=== PATIENT | male | born 1945 | race Caucasian/White ===

== ENCOUNTER 2022-10-14 10:02 | Day surgery (SDC) | payer MEDICARE, OTHER, SELFPAY ==
[2022-10-14 10:30] VITALS: BP 136/80; PULSE 70; RESP 16; TEMP 37; O2SAT 95
[2022-10-14] MEDS: TETRACAINE 0.5% OPHTH 1 DROP EYE-RIGHT (10:30)
[2022-10-14] MEDS: KETOROLAC OPHTH 0.5% 1 DROP EYE-RIGHT ×3 (10:30→11:04)
[2022-10-14] MEDS: TETRACAINE 0.5% OPHTH 2 DROP EYE-RIGHT (11:35)
--- NOTE | 2022-10-14 11:39 | P.ANES_ITS ---
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
[2022-10-14] MEDS: BALANCED SALT IRRIG SOLN 15 ML EYE-RIGHT (11:41)
[2022-10-14] MEDS: BRIMONIDINE TARTRATE 0.2% OPHTH 1 DROP EYE-RIGHT (11:55)
[2022-10-14 12:00] VITALS: BP 128/69; PULSE 69; RESP 16; TEMP 36.7; O2SAT 96
--- NOTE | 2022-10-14 12:19 | W.ANESCHARGE ---
Anesthesia Charges Start Date/Time Anesthesia Start Date: 10/14/22 Anesthesia Start Time: 11:30 Stop Date/Time Anesthesia Stop Date: 10/14/22 Anesthesia Stop Time: 12:05 Summary Extremes of Age - Over 70 or under 1: MDA
--- NOTE | 2022-10-14 12:41 | PM.PROC ---
Procedure Note Date Seen: 10/14/22 Will [facility] bill your pro fee for this procedure?: No Procedure: right phaco with pc iol Procedure Description: Insert right Koffi NAME OF PROCEDURE Koffi phacoemulsification, right eye, with posterior chamber lens implant. PREOPERATIVE DIAGNOSIS Nuclear sclerotic cortical combined cataract, right eye. POSTOPERATIVE DIAGNOSIS Nuclear sclerotic cortical combined cataract, right eye. INDICATIONS FOR PROCEDURE The patient has noted that his vision in the right eye is failing. Severity 7 advanced/10. Unable to correct with glasses/contact lenses; has disabling night glare when driving, difficulty reading. Because of this, the patient elected to proceed with surgical repair. I have explained the risks, benefits, alternative treatments to the patient including possible loss of the eye under correction, over correction, need for more surgery. The patient understands, accepts, and elects to proceed with surgical repair. PROCEDURE The right eye was dilated with a combination 1% Mydriacyl, 2.5% phenylephrine with topical Ocufen and Vigamox applied to the corneal surface. The patient was brought to the main operating room where under IV sedation, after pausing to identify the correct patient, correct intraoperative lens, power . The right eye was prepped and draped in usual sterile fashion for intraocular surgery. A lid speculum was placed and a paracentesis created at 12 o'clock. The chamber was filled with OVD and entered temporally with a keratome. A continuous tear capsulotomy was performed. The nucleus was hydrodissected and emulsified with local anesthetic and emulsified in a chop technique in the capsular bag. Residual cortex was cleaned. The capsule was clear. At this point, ZCBOO 21.0 diopter posterior chamber lens implant was injected into the capsular bag and was well centered. Residual OVD was cleaned from behind the implant from the capsular bag. The incision hydrated and noted to be leak free. Topical Alphagan, pilocarpine, and Vigamox were applied to the corneal surface and the patient returned to recovery in good condition having tolerated the procedure well. CONDITION ON DISCHARGE Satisfactory.
[2022-10-14] MEDS: ACETAMINOPHEN 500 MG TABLET 1000 MG PO (12:45)
== END 2022-10-14 12:56 | disposition home or self-care (01) ==
PROVIDERS: PCP Surgery; Visit Provider Ophthalmology
PROC: (CPT 66984; principal; 2022-10-14 11:30)
DX: H25.811 Combined forms of age-related cataract, right eye (principal)
CPT/HCPCS: 66984; 00142; 99100; A9270; J2250; J3010; S0020; V2632

== ENCOUNTER 2023-03-01 10:05 | Outpatient (CLI) | payer MEDICARE, OTHER, SELFPAY ==
--- NOTE | 2023-03-01 12:09 | W.ANESCHARGE ---
Anesthesia Charges Start Date/Time Anesthesia Start Date: 03/01/23 Anesthesia Start Time: 11:18 Stop Date/Time Anesthesia Stop Date: 03/01/23 Anesthesia Stop Time: 12:06
--- NOTE | 2023-03-01 13:39 | W.ANESCHARGE ---
Anesthesia Charges Start Date/Time Anesthesia Start Date: 03/01/23 Anesthesia Start Time: 11:18 Stop Date/Time Anesthesia Stop Date: 03/01/23 Anesthesia Stop Time: 12:06 Summary Extremes of Age - Over 70 or under 1: MDA
== END 2023-03-01 10:06 | disposition home or self-care (01) ==
LOC: OP CLINIC 10:07
PROVIDERS: PCP Surgery; Visit Provider Internal Medicine Gastroenterology
DX: Z86.010 Personal history of colon polyps (principal); K63.5 Polyp of colon
CPT/HCPCS: 00811; 45385; 88305; 99100; J2704

== ENCOUNTER 2024-03-02 07:20 | Emergency (ER) | payer MEDICARE, OTHER, SELFPAY ==
[2024-03-02] VITALS (26 sets, daily range): BP systolic 91–121; BP diastolic 46–70; PULSE 67–79; RESP 16–18; TEMP 36.7; O2SAT 93–99; BMI 39.6
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
--- OUTSIDE RECORDS SUMMARY | 2024-03-02 08:36 | XMS_ITS | Encounter Summary ---
Author Organization [facility] Address [address] [place] [id number] Care Team Providers Care Attic Fans Mechanic Name Role Phone Unavailable Primary Care Provider Unavailabl e Encounter Details Date Type Department Care Team (Late st Contact Info) Description 12/07/2023 Clinical Communication Department of Radiation Oncology in [place], [place] [address] [place] [phone] Marvin Sinclair M.D. [address] [place] [phone] Social History Tobacco Use Types Packs/Day Years Used Date Smoking Tobacco: Never Assessed Nutrition Answer Date Recorded Nutrition: EVOO Fat Source Unknown 12/26 Nutrition: Servings of Fruits/Vegetables per Day Not on file 12/26/2020 Dental Answer Date Recorded Dental: Regular Dentist Unknown 12/27/19 21 Sex and Gender Information Value Date Recorded Sex Assigned at Male 01/08/2021 2:52 PM CDT Legal Sex Male 1:15 PM CDT Gender Identity Male 01/08/2021 2:52 PM CDT Sexual Orientation Not on file documented as of this encounter Plan of Treatment Not on file documented as of this encounter Visit Diagnoses Not on filedocumented in this encounter
--- OUTSIDE RECORDS SUMMARY | 2024-03-02 08:36 | XMS_ITS | Referral Summary ---
Author Organization [facility] Address [address] [place] [address] Care Team Providers Care Shearing Machine Tender Name Role Phone Unavailable Primary Care Provider Unavailabl e Source Comments Patient records contain information from all sites at [facility]. For routine questions regarding patient records, call [phone] during business hours, M-F 8:00 AM - 5:00 PM Central Time. Record requests for emergency care only can be directed to [phone] at any time.[facility] Encounters Date Type Department Care Team Description 02/28/2024 2:34 PM DRYING MACHINE RECEIVER - 02/28/2024 4:13 PM DRYING MACHINE RECEIVER Hospital Encounter Department of Radiation Oncology in [place], [place] [address] [place] [phone] Marvin Sinclair M.D. Primary Malignant Neoplasm Of Prostate (HCC) (Primary Dx) 12/07/2023 Clinical Communication Department of Radiation Oncology in [place], [place] [address] [place] [phone] Marvin Sinclair M.D. from Last 3 Months Allergies No known active allergies Medications calcium carbonate-vitam in D3 1,250 mg (500 mg calcium)-5 mcg (200 Unit) per tablet Take 1 tablet by mouth. 3 Active dofetilide (TIKOSYN) 250 mcg capsule Take 250 mcg by mouth. 1 Active fluticasone propion-salmete roL (ADVAIR HFA) 115-21 mcg/actuation inhaler Inhale 2 puffs every 12 (twelve) hours. 1 Active lisinopriL (PRINIVIL,ZESTR IL) 30 mg tablet Take 1 tablet by mouth daily. 1 Active miscellaneous medical supply [facility] [place] for home use at pressure 9 cm/H2O, full face mask x1/3month with a full face cushion x1/mo 1 Active metoprolol succinate (TOPROL-XL) 25 mg 24 hr tablet Take 25 mg by mouth. 1 Active multivitamin tablet Take by mouth. 7 Active PARoxetine (PAXIL) 40 mg tablet Take 40 mg by mouth. 1 Active pravastatin (PRAVACHOL) 20 mg tablet Take 1 tablet by mouth at bedtime. 1 Active tolterodine (DETROL LA) 4 mg 24 hr capsule Take 4 mg by mouth. 1 Active warfarin (COUMADIN) 5 mg tablet TAKE BY MOUTH 2 TABLETS (10 MG) EVERY WEDNESDAY, WEDNESDAY, AND WEDNESDAY AND ONE AND ONE-HALF TABLETS (7.5 MG) ALL OTHER DAYS OR DIRECTED 1 Active vit S-jrblziw-boaa- [id number] 127-52-56-40 mg tablet Take 1 tablet by mouth daily. 7 Active Xopenex HFA 45 mcg/actuation inhaler as needed. 1 Active Zepbound 7.5 mg/0.5 mL injection pen INJECT 7.5 MG SUBCUTANEOUS ONCE WEEKLY. DOSE INCREASE Active Active Problems Problem Noted Date Diagnosed Date Primary Malignant Neoplasm Of Prostate 1 Cancer Staging:Clinical stage from 02/25/2018:Stage I(cT1c, cN0, cM0, PSA: 5.9, Grade Group: 1) - Unsigned Social History Tobacco Use Types Packs/Day Years [...] PM CDT Sexual Orientation Not on file Last Filed Vital Signs Vital Sign Reading Time Taken Comments Blood Pressure 180/71 02/23/2022 9:50 AM DRYING MACHINE RECEIVER Pulse 68 02/23/2022 9:50 AM DRYING MACHINE RECEIVER Temperature 36.2 ??C (97.2 ??F) 02/28/2024 2:50 PM CS T Respiratory Rate - - Oxygen Saturation - - Inhaled Oxygen Concentration - - Weight 129 kg (285 lb 4.4 oz) 02/28/2024 2:50 PM DRYING MACHINE RECEIVER Height 184 cm (6' 0.44) 01/03/2021 10:14 AM CDT Body Mass Index 38.22 01/03/2021 10:14 AM CDT Plan of Treatment Not on file Insurance MEDICARE [facility] [employer] [facility]
--- OUTSIDE RECORDS SUMMARY | 2024-03-02 08:36 | XMS_ITS ---
Author Organization [facility] Address [address] [place] [address] Care Team Providers Care Newspaper Photographer Name Role Phone Unavailable Unavailable Unavailable Surgery Details Not on file Complications Check Surgery Details section. Procedure Estimated Blood Loss Check Surgery Details section. Procedure Findings Check Surgery Details section. Procedure Specimens Taken Check Surgery Details section.
--- OUTSIDE RECORDS SUMMARY | 2024-03-02 08:36 | XMS_ITS | Clinical Summary ---
Author Organization [facility] Address [place], [place] [address] Care Team Providers Care Canvassing Manager Name Role Phone Sea Skaggs MD Unavailable Wallace Khan Unavailable [phone] Shane Schwab MD Unavailable [phone] Robyn Oliva NP Unavailable [phone] Jorge Avelar MD Primary Care Provider [phone] Allergies No known active allergies Medications Medication Sig Dispensed Refills Start Date End Date Status MULTIVITAMIN TAB take 1 tablet by oral route once daily with food 0 7 Active calcium with vitamin D3 (CALCIUM 500+D) tablet Take 1 tablet by mouth once daily with a meal. 0 3 Active CPAPIndications: Obstructive sleep apnea CPAP machine for home use at pressure 9 cm/H2O, full face mask x1/3month with a full face cushion x1/mo 1 Each 11 3 Active hydrocortisone 2.5% cream 3 Active levalbuterol (Xopenex HFA) 45 mcg/actuation inhalerIndicatio ns:Asthma, unspecified asthma severity, unspecified whether complicated, unspecified whether persistent Inhale 2 Puffs by mouth every 4 hours if needed for Shortness Of Breath. 3 Each 3 3 Active fluticasone propion-salmeter oL (Advair HFA) 115-21 mcg/actuation inhalerIndicatio ns:Asthma, unspecified asthma severity, unspecified whether complicated, unspecified whether persistent Inhale 2 Puffs by mouth two times daily. 36 g 11 4 Active metoprolol succinate (TOPROL XL) 25 mg Sustained-Releas e tabletIndication s:Paroxysmal atrial fibrillation (HC) Take 1 Tablet (25 mg) by mouth once daily. 90 Tablet 3 4 Active lisinopriL (PRINIVIL; ZESTRIL) 40 mg tabletIndication s:Essential hypertension Take 1 Tablet (40 mg) by mouth once daily. 90 Tablet 3 4 Active DULoxetine (CYMBALTA) 60 mg Delayed-release capsuleIndicatio ns:Anxiety,Depre ssion, major, single episode, moderate (HC) Take 1 Capsule (60 mg) by mouth once daily. 90 Capsule 3 4 Active amLODIPine (NORVASC) 2.5 mg tabletIndication s:Essential hypertension Take 1 Tablet (2.5 mg) by mouth once daily. 90 Tablet 3 4 Active pravastatin (PRAVACHOL) 20 mg tabletIndication s:Dyslipidemia Take 1 Tablet (20 mg) by mouth at bedtime. 90 Tablet 3 4 Active tolterodine (DETROL LA) 4 mg Extended-Release capsuleIndicatio ns:Urge incontinence of urine TAKE 1 CAPSULE DAILY 90 Capsule 1 4 Active warfarin (COUMADIN) 5 mg tabletIndication s:Paroxysmal atrial fibrillation (HC),Anticoagula tion monitoring, INR range 2-3 Take by mouth 5 mg (5 mg x 1) every Sat; 7.5 mg (5 mg x 1.5) all other days in the evening OR as directed. 130 Tablet 4 Active dofetilide (TIKOSYN) 250 mcg capsuleIndicatio ns:Paroxysmal atrial fibrillation (HC) Take 1 Capsule (250 mcg) by mouth every 12 hours. Pt is due for labs/EKG in April 2024 180 Capsule 4 Active tirzepatide, weight loss, (Zepbound) 7.5 mg/0.5 mL penIndications:M orbid obesity with BMI of 40.0-44.9, adult (HC) Inject 7.5 mg subcutaneous once weekly. 2 mL 6 4 Active acetic acid (VOSOL) 2 % otic solutionIndicati ons:Impacted cerumen of both ears Place 4 Drops into left ear three times daily. 15 mL 4 Active tirzepatide, weight loss, (Zepbound) 7.5 mg/0.5 mL penIndications:M orbid obesity with BMI of 40.0-44.9, adult (HC) Inject 7.5 mg subcutaneous once weekly. Attn Pharmacy- Dose increase; please discontinue previous Rx for this medication. 2 mL 3 4 02/29/20 24 Discontinued(Re order (E-cancel not sent)) warfarin (COUMADIN) 5 mg tabletIndication s:Paroxysmal atrial fibrillation (HC),Anticoagula tion monitoring, INR range 2-3 Take by mouth 5 mg (5 mg x 1) every Sat; 7.5 mg (5 mg x 1.5) all other days in the evening OR as directed 4 02/16/20 24 Discontinued dofetilide (TIKOSYN) 250 mcg capsuleIndicatio ns:Paroxysmal atrial fibrillation (HC) Take 1 Capsule (250 mcg) by mouth every 12 hours. Pt is due for labs/EKG in December 2023 180 Capsule 4 02/29/20 24 Discontinued(Re order (E-cancel not sent)) Active Problems Problem Noted Date Diagnosed Date Depression, major, single episode, moderate 11/17 Primary malignant neoplasm of prostate 1 Multiple nodules of lung 08/23/2017 Overview (01/21/2024): Stable on last CT in 2018 - no further scans recommended Anticoagulation monitoring, INR range 2-3 2014 Adenomatous colon polyp 09/19/2014 Overview (03/04/2023): Colonoscopy 09/2014 polyp repeat in 5 years Colonoscopy 10/2019 multiple polyps, repeat in 3 years Colonoscopy 02/2023 multiple TA, repeat in 3 years, consider machine ironer Paroxysmal atrial fibrillation 05/04/2011 Overview (07/22/2022): -11/10/2010: palpitations and chest heavy with atrial flutter 2:1 conduction with VR 140bpm *given IV medication and spontaneous conversion after 4-5 hours *negative stress echocardiogram -02/02/2011 recurrent palpitations -02/03/2011 presented for atrial flutter ablation, but in atrial fibrillation *admitted for Tikosyn initiation 02/03/2011 - converted at 2200 after first dose SHARAD AHi-8 01/05/2011 01/11/2011 Tear film insufficiency 05/09/2009 Overview (07/22/2022): Drops daily HEARING LOSS Left s/p Trauma Javy Nam 04/26/2007 Overview (07/22/2022): Hearing improved with new Hearing Aides (since July 2011) May 01, 2011 Entered By: ROBYN OLIVA Comment: s/p [place] Trauma Benign essential hypertension Morbid obesity with BMI of 40.0-44.9, adult Impaired fasting glucose Resolved Problems Problem Noted Date Diagnosed Date Resolved Date Elevated PSA 08/18/2016 12/07/2022 Ascending aorta dilatation 08/04/2016 0 11/21/2020 Overview (08/19/2020): Normal on echo 12/2019 Prediabetes 09/08/2010 08/18/2016 Overview (09/08/2010): Work on cutting back calories and increasing exercise. 09/08/2010 Tendon nodule 05/12/2010 08/18/2016 Overview (05/12/2010): Palmar: left ring finger. 05/12/2010 Renal colic 01/02/2010 11/28/2021 Nodular prostate without urinary obstruction 0 11/28/2021 Overview (05/13/2011): Urology Consult 2004; PSA stable since[facility] 3.89 04/2011. DERMATOPHYTOSIS OF LEFT CHEST WALL 11/03/2007 08/18/2016 Dysthymic disorder 04/26/2007 3 Encounters Date Type Department Care Team Description 03/01/2024 3:00 PM MANAGER DECISION SUPPORT Office Visit [facility] [address] [place] [address] Tete Kelly PA Recheck (Ear cleaning) 03/01/2024 Travel 02/29/2024 Telephone [facility] [address] [place] [address] Del Sorto NP Refill Request (tikosyn) 02/26/2024 Travel 02/18/[address] [facility] [address] [place] [address] Jorge Avelar MD Anticoagulation (Lab Orders ) 02/16/2024 Anticoagulation (warfarin) [facility] [address] [place] [address] 1, [facility] Anticoagulation 02/16/[address] [facility] [address] [place] [address] Jorge Avelar MD Lab 02/16/2024 Travel 02/16/[address] [address] Jorge Avelar MD Refill Request (Warfarin) 01/31/[address] [facility] [address] [place] [address] Jorge Avelar MD Anticoagulation (Chart Update lab orders/[facility] ) 01/31/[address] [address] Jorge Avelar MD Refill Request (Tolterodine) 01/26/2024 2:55 PM CDT Office Visit [facility] [address] [place] [address] Nyla Sutton DO Ear Problem 01/26/2024 Travel 01/22/2024 Anticoagulation (warfarin) [facility] [address] [place] [address] 1, [facility] Anticoagulation 01/21/2024 1:10 PM CDT Office Visit [facility] [address] [facility] [place] [address] Jorge Avelar MD Medicare ANNUAL (subsequent) Visit (78 yr old male) 01/21/2024 Orders Only [facility] Scanner 1 scan: (1-Ord) [facility], MULTIPLE LAB RESULTS, 01/21/2024 01/20/2024 Travel 01/14/2024 Anticoagulation (warfarin) [facility] [address] [facility] [place] [address] 1, [facility] Anticoagulation 01/14/[address] [facility] [address] [facility] [place] [address] Jorge Avelar MD Refill Request (Pravastatin) 01/13/2024 10:45 AM CDT Nurse/Clinic Staff Only [facility] [address] [facility] [place] [address] Cardiovascular Diagnostic Testing (EKG PER DEL SORTO NP) 01/13/[address] [facility] [address] [place] [address] Shane Schwab MD Lab Request 01/13/[address] [facility] [address] [place] [address] Roro Moreland RN <No scans attached> 01/12/2024 Travel 01/10/[address] [facility] [address] [place] [address] Jorge Avelar MD Anticoagulation (Lab order update) 01/03/[address] [facility] [address] [place] [address] Jorge Avelar MD Refill Request (Metoprolol Succinate) 12/31/[address] [facility] [address] [place] [address] Jorge Avelar MD Refill Request (Amlodipine, Lisinopril) 12/30/[address] [facility] [place] [address] Jorge Avelar MD Refill Request (Lisinopril, Metoprolol Succinate) 12/28/2023 8:25 AM CDT Office [facility] [place] [address] [place] [address] Jorge Avelar MD Follow Up 12/28/2023 Travel 12/20/[address] [facility] [address] [facility] [address] [place] [address] Maria Ines Aaron RN Medication Management (Tikosyn/) 12/08/2023 10:30 AM CDT Orders Only [facility] [place] [address] Lab, [place] [facility] 12/08/2023 Anticoagulation (warfarin) [facility] [place] [address] 1, [facility] Anticoagulation 12/08/2023 Travel 12/07/[address] [facility] [place] [address] Jorge Avelar MD Outside Order (Ordered by Jennifer Huynh) 12/01/[address] [facility] [place] [address] Jorge Avelar MD Refill Request (Warfarin) from Last 3 Months Immunizations Name Administration Dates Next Due AMB INFLUENZA IIV3 (AGE 65+ YRS) PF (Flu Clinic Only) 01/30/2019 AMB Influenza, IIV3 (Age >=3 years)(Flu Clinic Only) 02/24/2008 Amb Influenza, Inact (High-d ose) (Flu Clinic Only) 01/22/2014 COVID-19 VACCINE SPIKEVAX (M ODERNA 50MCG/0.5ML) 12YO+ PFS 02/15/2023 COVID-19 vaccine (JinnBio NTech 30mcg/0.3mL) 12YO+ MILLIE-SUCROSE PF, MDV 08/04/2021 COVID-19 vaccine (Pimovation 30mcg/0.3mL) PF, MDV 02/25/2021,06/24/2020,06/03/2020 Hepatitis B (Adult) 03/13/1997,10/06/1996,1996 Influenza A (H1N1), Inactiva whit (Age >=3 Years) 04/24/2009 Influenza Virus, Unspecified 02/17/2013 Influenza, High-dose Inactivated 02/01/2016,01/17 Influenza, IIV3 (Age >=3 years) 01/31/20 13,01/04/2012,01/14/2011,2009,01/11/2009,01/26/2007 Influenza, Inactivated AIIV4 (Age 65+ Years) Preserv Free 01/21/2023,03/02/2022,12/24/2020,2019 Influenza, Inactivated IIV3 (Age 65+ Years) Preserv Free 12/28/2023,01/01/2017 Pneumococcal Poly,23-Valent (Pneumovax) 01/04/2012 Pneumococcal conj 13-Valent (Prevnar 13) 08/02/2014,01/17/2014 Pneumococcal, Unspecified 04/20/2013,04/19/2002 Td (Age >=7 Years) 04/06/2006 Td, Preservative Free (age > = 7 Years) 04/06/2006 Tdap 12/23/2021,05/01/2011 Zoster (Shingrix-RZV, recombinant) 06/06/2018, Zoster (Zostavax-ZVL, live) 04/19/2009, 8 Family History Medical History Relation Name Comments Cancer Brother 1 Dusty Skin Cancer Cancer-prostate Brother 1 Dusty Prostate Ca; considering surgery 04/2012 Other Brother 1 Dusty Osteoarthritis: s/p TKA Diabetes Brother 2 Adarsh started on Insu luann Other Brother 2 Adarsh Hemochromatosis Arthritis Mother Sadia RAMSES Cancer-colon Mother Sadia Diabetes Mother Sadia Heart Disease Mother Sadia CAD Hypertension Mother Sadia Cancer Sister Lorna Breast Ca mets to Spine; Ovarian Ca Cancer-breast Sister Lorna survivor Relation Name Status Comments Brother 1 Dusty Alive Brother 2 Adarsh Alive Father Adam (Age 83) copd Mother Sadia (Age 70) mi Sister Lorna Alive Social History Tobacco Use Types Packs/Day Years Used Date Smoking Tobacco: Never Smokeless Tobacco: Never Tobacco Cessation:Counseling Given: Yes Alcohol Use Standard Drinks/Week Comments Yes 2 (1 standard drink = 0.6 oz pur e alcohol) 2 cans of a beer a week PHQ-2 Answer Date Recorded PHQ-2 TOTAL SCORE 1 01/21/2024 Social Connections Answer Date Recorded Do you often feel lonely or isolated from those around you? 0 05/18/2023 Alcohol Use Answer Date Recorded How often do you have a drink containing alcohol ? 3 11/28/2021 How many drinks containing a lcohol do you have on a typical day when you are drinking? 0 11/28/2021 How often do you have five or more drinks on one occasion? 0 11/28/2021 Financial Resource Strain Answer Date R ecorded Difficulty of Paying Living Expenses 3 05/18/2023 Difficulty of Paying Living Expenses Not on file 05/18/2023 Food Insecurity Answer Date Recorded Do you worry your food will run out before you are able to buy more? 1 05/18/2023 Transportation Needs Answer Date Record ed Does lack of transportation keep you from medica l appointments? 1 05/18/2023 Does lack of transportation keep you from work, meetings or getting things that you need? 1 05/18/2023 Housing Stability Answer Date Recorded What is your housing situation today? 1 05/18/2023 Sex and Gender Information Value Date Recorded Sex Assigned at Not on file Gender Identity Not on file Sexual Orientation Not on file Obstetrics History Last Filed Vital Signs Vital Sign Reading Time Taken Comments Blood Pressure 143/75 01/26/2024 2:54 PM CDT Pulse 75 01/26/2024 2:54 PM CDT Temperature 36.8 ??C (98.2 ??F) 09/23/2020 2:08 PM CD T Respiratory Rate 18 11/11/2023 10:34 AM CDT Oxygen Saturation 97% 01/26/2024 2:54 PM CDT Inhaled Oxygen Concentration - - Weight 132.9 kg (293 lb) 02/29/2024 1:00 PM MANAGER DECISION SUPPORT pt reported Height 186 cm (6' 1.23) 01/21/2024 1:18 PM CDT Body Mass Index 38.42 01/21/2024 1:18 PM CDT Plan of Treatment Upcoming Encounters Date Type Department Care Team (Late st Contact Info) Description 03/02/2024 9:00 AM MANAGER DECISION SUPPORT Office Visit [facility] [address] [place] [address] [employer] [address] [place] [address] 03/15/2024 1:15 PM MANAGER DECISION SUPPORT Orders Only [facility] [address] [place] [address] Lab, [place] 03/21/2024 9:20 AM MANAGER DECISION SUPPORT Office Visit [facility] [address] [address] Sushila Marrero, SENIOR MECHANICAL ENGINEER [address] [place] [address] 04/10/2024 9:30 AM MANAGER DECISION SUPPORT Office [facility] [address] [place] [address] Sea Skaggs MD [address] [place] [address] Health Maintenance Due Date Last Done Comments RSV vaccine for adults or (1 - 1-dose 75+ series) 2021 COVID-19 vaccine series ( season) 2023 02/15/2023, 12/30/2021, 08/04/2021, Additional history exists BMI (ht and wt on same day) for age 18+ 01/20/2025 01/21/2024, 11/11/2023, 03/16/2023, Additional history exists Medicare Wellness for age 65+ 01/21/2025, 12/07/2022, 11/28/2021, Additional history exists Depression screening for age 12+ 01/25/2025 01/26/2024, 01/22/2024, 01/21/2024, Additional history exists Tetanus booster 12/24/2031 12/23/2021, 04/19, 05/01/2011 (Completed outside of [facility]), Additional history exists Pneumococcal series for age 65+ Completed 08/02/2014, 01/17/2014, 04/20/2013, Additional history exists Hepatitis C screening for ag e 18-79 Completed 08/23/2017 Zoster (shingles) series for age 50+ Completed 06/06/2018, 03/07/2018, 04/19/2009, Additional history exists Tdap Completed 12/23/2021, 05/01/2011 Influenza for age 65+ Completed 12/28/2023 , 01/21/2023, 03/02/2022, Additional history exists Procedures Procedure Name Priority Date/Time Associated Diagnosis Comments PSA (TOTAL) ([facility]) Routine 02/16/2024 2 :43 PM CDT Primary malignant neoplasm of prostate (HC) INR,POCT Routine 02/16/2024 2:38 PM CDT Paroxysmal atrial fibrillation (HC) Anticoagulation monitoring, INR range 2-3 POTASSIUM Routine 01/21/2024 2:44 PM CDT Paroxysmal atrial fibrillation (HC) CREATININE Routine 01/21/2024 2:44 PM CDT Paroxysmal atrial fibrillation (HC) BUN Routine 01/21/2024 2:44 PM CDT Paroxysmal atrial fibrillation (HC) PROTIME-INR Routine 01/21/2024 2:43 PM CDT Paroxysmal atrial fibrillation (HC) Anticoagulation monitoring, INR range 2-3 SCAN-LABORATORY REPORT 01/21/2024 12:00 AM CDT EKG 12 LEAD Routine 01/13/2024 1:31 PM CDT Paroxysmal atrial fibrillation (HC) PROTIME-INR Routine 01/13/2024 10:20 AM CDT Paroxysmal atrial fibrillation (HC) Anticoagulation monitoring, INR range 2-3 HEMOGLOBIN A1C Routine 01/13/2024 10:19 AM CDT Prediabetes INR,POCT Routine 12/08/2023 10:46 AM CDT Paroxysmal atrial fibrillation (HC) Anticoagulation monitoring, INR range 2-3 ANTI HCV Routine 08/23/2017 2:13 PM CDT Need for hepatitis C screening test from Last 3 Months or Most Recently Relevant to Health Maintenance Results * PSA (TOTAL) ([facility]) (02/16/2024 2:43 PM CDT) PSA, TOTAL 0.29 < OR = 4.00 ng/mL [facility] Lazaro Comment: The total PSA value from this assay system is standardized against the WHO standard. The test result will be approximately 20% lower when compared to the equimolar-standardized total PSA (Jazmin Wharncliffe). Comparison of serial PSA results should be interpreted with this fact in mind. This test was performed using the Siemens chemiluminescent method. Values obtained from different assay methods cannot be used interchangeably. PSA levels, regardless of value, should not be interpreted as absolute evidence of the presence or absence of disease. Blood BLOOD SPECIMEN / Unknown 02/16/2024 2:43 PM CDT 02/16/2024 2:44 PM CDT Jorge Avelar MD SEND OUTS [facility] [address] [place] [address], [facility] [address] [place] [address] * (ABNORMAL) INR,POCT (02/16/2024 2:38 PM CDT) Only the most recent of2 resultswithin the time period is included. INR 3.3(H) ratio [facility] Comment: INRs >2.9 may be falsely elevated in patients receiving either unfractionated Heparin or Low Molecular Weight Heparin. Follow up testing in a hospital laboratory may be helpful if clinically indicated. INR results of > or = 5.0 should be verified using the standard venipuncture procedure. Reference Range ? 0.9-1.1 Moderate-intensity Warfarin Therapy 2.0-3.0 Higher-intensity Warfarin Therapy ?? 3.0-4.0 PROTHROMBIN TIMEP 39.0(H) 10.5 - 13.1 sec [facility] Comment: Point of care fingerstick Prothrombin Time/INR results may vary from venous Prothrombin Time/INR methodologies. Any results exhibiting inconsistency with the patient's clinical status should be repeated using a venous Prothrombin Time/INR method. Blood BLOOD SPECIMEN / Unknown 02/16/2024 2:38 PM CDT 02/16/2024 2:39 PM CDT Jorge Avelar MD LABORATORY Performing Organization Address City/[facility]/ZIP Co de Phone Number [facility] [address] [place] [address], [facility] [address] [place] [address] * BUN (01/21/2024 2:44 PM CDT) UREA NITROGEN (BUN) 15 7 - 25 mg/dL [facility] Blood BLOOD SPECIMEN / Unknown 01/21/2024 2:44 PM CDT 01/21/2024 2:44 PM CDT Del Sorto NP CHEMISTRY Performing Organization Address City/[facility]/ZIP Co de Phone Number [facility] [address] [place] [address], [facility] [address] [place] [address] * POTASSIUM (01/21/2024 2:44 PM CDT) POTASSIUM 4.2 3.5 - 5.3 mmol/L [facility] Comment: ? Your request to have a duplicate copy faxed has been acknowledged. ?Queued to: ??[id number] Blood BLOOD SPECIMEN / Unknown 01/21/2024 2:44 PM CDT 01/21/2024 2:44 PM CDT Del Sorto SENIOR MECHANICAL ENGINEER CHEMISTRY Performing Organization Address City/[facility]/ZIP Co de Phone Number [facility] [address] [place] [address], [facility] [address] [place] [address] * CREATININE (01/21/2024 2:44 PM CDT) CREATININE 0.72 0.70 - 1.28 mg/dL [facility] EGFR 94 > OR = 60 mL/min/1.73 m2 [facility] Blood BLOOD SPECIMEN / Unknown 01/21/2024 2:44 PM CDT 01/21/2024 2:44 PM CDT Del Sorto SENIOR MECHANICAL ENGINEER CHEMISTRY Performing Organization Address [facility]/ZIP Co de Phone Number [facility] [address] [place] [address], [facility] [address] [place] [address] * (ABNORMAL) PROTIME-INR (01/21/2024 2:43 PM CDT) Only the most recent of2 resultswithin the time period is included. INR 1.9(H) [facility] Comment: Reference Range ? 0.9-1.1 Moderate-intensity Warfarin Therapy 2.0-3.0 Higher-intensity Warfarin Therapy ?? 3.0-4.0 PT 19.8(H) 9.0 - 11.5 sec [facility] Comment: For additional information, please refer to http://education.Teracent/faq/OHY674 (This link is being provided for informational/ educational purposes only.) Blood BLOOD SPECIMEN / Unknown 01/21/2024 2:43 PM CDT 01/21/2024 2:43 PM CDT Jorge Avelar MD HEMATOLOGY Performing Organization Address City/State/[facility] Co de Phone Number [facility] [address] [place] [address], [facility] [address] [place] [address] * SCAN-LABORATORY REPORT (01/21/2024 12:00 AM CDT) Scanner OTHER * EKG 12 LEAD (01/13/2024 1:31 PM CDT) Del Sorto SENIOR MECHANICAL ENGINEER EKG ORD * HEMOGLOBIN A1C (01/13/2024 10:19 AM CDT) HEMOGLOBIN A1C 5.5 <5.7 % of total Hgb [facility] kelleymagdalena [facility] Comment: For the purpose of screening for the presence of diabetes: <5.7% ? Consistent with the absence of diabetes 5.7-6.4% ?Consistent with increased risk for diabetes ?(prediabetes) > or =6.5% ??Consistent with diabetes This assay result is consistent with a decreased risk of diabetes. Currently, no consensus exists regarding use of hemoglobin A1c for diagnosis of diabetes in children. According to Stateless Diabetes Association (ADA) guidelines, hemoglobin A1c <7.0% represents optimal control in non- diabetic patients. Different metrics may apply to specific patient populations. Standards of Medical Care in Diabetes(ADA). ? This test was performed on the Melvin maris c503 platform. Effective 06/23/23, a change in test platforms from the Mathis [employer] to the Melvin maris c503 may have shifted HbA1c results compared to historical results. Based on laboratory validation testing conducted at [employer], the Melvin platform relative to the Mathis platform had an average increase in HbA1c value of < or = 0.3%. This difference is within accepted variability established by the National Glycohemoglobin Standardization Program. Note that not all individuals will have had a shift in their results and direct comparisons between historical and current results for testing conducted on different platforms is not recommended. Blood BLOOD SPECIMEN / Unknown 01/13/2024 10:19 AM CDT 01/13/2024 10:19 AM CDT Jorge Avelar MD CHEMISTRY [facility] NETWORK [address] [address], [facility] [address] * ANTI HCV [40234.2] (08/23/2017 2:13 PM CDT) Pathologist [facility] HEPATITIS C ANTIBODY Non-React alyssa Non-React alyssa 08/23/2017 9:34 PM CDT [email or web address] Comment:Antibodies to HCV no t detected; does not exclude the possibility of exposure to HCV. Blood BLOOD SPECIMEN / Unknown Butterfly / Unknown 08/23/2017 2:13 PM CDT 08/23/2017 2:13 PM CDT Jorge Avelar MD SEND OUTS [facility] [place] [facility] [address] [place] [address], [place] from Last 3 Months or Most Recently Relevant to Health Maintenance Advance Directives Documents on File Type Date Recorded Patient Poultry Scalder Expl anation Healthcare Directive 08/31/2018 4:18 PM HE ALTH CARE DIRECTIVE * Full Code (Latest Code Status on File) Date Activated Date Inactivated Comments 02/03/2011 8:35 AM 02/06/2011 4:41 PM * Full Code Date Activated Date Inactivated Comments 02/03/2011 5:56 AM 02/03/2011 8:35 AM Care Teams Canvassing Manager Relationship Specialty Start Date End Date Jorge Avelar MD [address] [place] [address] PCP - General Family Practice 03/27/13 Sea Skaggs MD Internal Medicine Sleep Medicine 11/13/10 Wallace Khan [address] [place] [id number] Stave Block Splitter 05/13/11 Shane Schwab MD [address] [address] Cardiovascular Disease 05/13/11 Robyn Oliva NP [address] [place] [address] 05/13/11
--- OUTSIDE RECORDS SUMMARY | 2024-03-02 08:36 | XMS_ITS | Continuity of Care Document ---
Author Name [facility] Organization 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 Unavailable Unavailable Problems Combined list of problems from Department of Defense and Veterans Affairs facilities. It does not include entries that were removed or entered in error. Problem Status Onset Date Problem Type Date of Resolution Comments Source Ankle: arthralgia Active Condition Ja 2011 Entered By: IZABELLA OLIVA Comment: s/p Ankle fracture 1979 [facility] Atrial fibrillation (SNOMED CT 41046450) Active Condition [facility] Benign essential hypertension (SNOMED CT 1090899) Active Condition [facility] Benign paroxysmal positional vertigo Active Condition [facility] Benign Prostatic Hypertrophy Active Condition [facility] Co-Managed Patient Active Condition May 01, 2011 Entered By: IZABELLA OLIVA Comment: Enoch Garcia MD [facility] Dry Eye Syndromes Active Condition [facility] Dysthymic Disorder Active Condition [facility] Elevated Prostate Specific Antigen Active Condition [facility] Generalized Anxiety Disorder Active Condition [facility] Hearing loss Active Condition May 01, 2011 Entered By: IZABELLA OLIVA Comment: s/p [place] Trauma [facility] Hyperlipidemia Active Condition [facility] Impaired Fasting Glucose Active Condition [facility] Insomnia Active Condition [facility] Morbid obesity Active Condition [facility] Multiple nodules of lung Active Condition [facility] Obstructive Sleep Apnea Active Condition May 01, 2011 Entered By: IZABELLA OLIVA Comment: CPAP [facility] Osteoarthritis Active Condition Apr 192011 Entered By: IZABELLA OLIVA Comment: Arthroscopic debridement bilateral kneesSep 2016 Entered By: IZABELLA OLIVA Comment: Right total knee, 2017 [facility] Patient Receiving Warfarin Therapy for Nonvalvular Atrial Fibrillation or Atrial Active Condition [facility] Seasonal Allergies Active Condition [facility] Medications Combined list of outpatient medications from Department of Defense and Veterans Affairs facilities.Medications provided include 1) outpatient medications from the last 15 months, and 2) patient-reported medications. Medication Details Route Status Patient Instructions Prescription Expires Prescription Number Last Dispense Date Ordering Provider Order Date Order Qty Source AMLODIPINE BESYLATE (amlodipine besylate), 2.5 MG, TABLET, ORAL, [employer], 1000 ea. BOTTLE Active [id number] 4 2023 90 Pharmac y Data Transac tion Service Facilit y AMLODIPINE BESYLATE (amlodipine besylate), 2.5 MG, TABLET, ORAL, [employer]KARE, 1000 ea. BOTTLE Active [id number] 4 2023 90 Pharmac y Data Transac tion Service Facilit y CALCIUM 250MG/VITAM IN D 125UNT TAB TAKE TWO TABLETS BY MOUTH EVERY DAY ORAL ACTIVE YAHAIRA OLIVA 2016 [facility] DOFETILIDE (dofetilide ), 250 MCG, CAPSULE, ORAL, [employer]KARE, 60 ea. BOTTLE Active [id number] 4 2023 180 Pharmac y Data Transac tion Service Facilit y DOFETILIDE (dofetilide ), 250 MCG, CAPSULE, ORAL, [employer], 60 ea. BOTTLE Active [id number] 4 2023 180 Pharmac y Data Transac tion Service Facilit y DOXYCYCLINE HYCLATE (DOXYCYCLIN E HYCLATE), 100 MG, TABLET, ORAL, [employer] , 1000 ea. BOTTLE Active [id number] 4 2023 20 Pharmac y Data Transac tion Service Facilit y DOXYCYCLINE HYCLATE (doxycyclin e hyclate), 100 MG, TABLET, ORAL, [employer], 50 ea. BOTTLE Active [id number] 4 2023 20 Pharmac y Data Transac tion Service Facilit y DULOXETINE HCL (duloxetine HCl), 30 MG, CAPSULE DR ORAL, [employer] 90 ea. BOTTLE Active [id number] 4 2023 90 Pharmac y Data Transac tion Service Facilit y DULOXETINE HCL (duloxetine HCl), 30 MG, CAPSULE DR ORAL, [employer] 90 ea. BOTTLE Active [id number] 4 2023 90 Pharmac y Data Transac tion Service Facilit y GLUCOSAMINE CAP/TAB TAKE TWO TABLETS BY MOUTH EVERY DAY ORAL ACTIVE YAHAIRA OLIVA ER 2011 [facility] LISINOPRIL (lisinopril ), 40 MG, TABLET, ORAL, [employer], 1000 ea. BOTTLE Active [id number] 4 2023 90 Pharmac y Data Transac tion Service Facilit y LISINOPRIL (lisinopril ), 40 MG, TABLET, ORAL, [employer], 180 ea. BOTTLE Active [id number] 4 2023 90 Pharmac y Data Transac tion Service Facilit y LISINOPRIL 20MG TAB TAKE ONE-HALF TABLET BY MOUTH EVERY DAY ORAL ACTIVE YAHAIRA OLIVA 2017 [facility] LORATADINE 10MG TAB TAKE ONE TABLET BY MOUTH EVERY DAY NEEDED ORAL ACTIVE YAHAIRA OLIVA 2016 [facility] METOPROLOL SUCCINATE (metoprolol succinate), 25 MG, TAB ER 24H, ORAL, [employer] 1000 ea. BOTTLE Active [id number] 4 2023 90 Pharmac y Data Transac tion Service Facilit y METOPROLOL SUCCINATE (metoprolol succinate), 25 MG, TAB ER 24H, ORAL, [employer] 1000 ea. BOTTLE Active [id number] 4 2023 90 Pharmac y Data Transac tion Service Facilit y METOPROLOL SUCCINATE 50MG TAB,SA TAKE ONE-HALF TABLET BY MOUTH EVERY DAY ORAL ACTIVE YAHAIRA OLIVA 2016 [facility] MULTIVITS W/MINERALS TAB/CAP (NO VIT K) TAKE ONE TABLET BY MOUTH EVERY DAY ORAL ACTIVE YAHAIRA OLIVA 2016 [facility] PAROXETINE HCL 40MG TAB TAKE ONE-HALF TABLET BY MOUTH EVERY DAY ORAL ACTIVE YAHAIRA OLIVA 2017 [facility] PRAVASTATIN NA 40MG TAB TAKE ONE-HALF TABLET BY MOUTH AT BEDTIME ORAL ACTIVE YAHAIRA OLIVA 2016 [facility] PRAVASTATIN SODIUM (PRAVASTATI N SODIUM), 20 MG, TABLET, ORAL, [employer], 1000 ea. BOTTLE Active [id number] 4 2023 90 Pharmac y Data Transac tion Service Facilit y PRAVASTATIN SODIUM (PRAVASTATI N SODIUM), 20 MG, TABLET, ORAL, [employer], 1000 ea. BOTTLE Active [id number] 4 2023 90 Pharmac y Data Transac tion Service Facilit y TOLTERODINE TARTRATE ER (tolterodin e tartrate), 4 MG, CAP ER 24H, ORAL, [employer] 500 ea. BOTTLE Active [id number] 4 2023 90 Pharmac y Data Transac tion Service Facilit y TOLTERODINE TARTRATE ER (tolterodin e tartrate), 4 MG, CAP ER 24H, ORAL, [employer] 500 ea. BOTTLE Active [id number] 4 2023 90 Pharmac y Data Transac tion Service Facilit y WARFARIN NA (JANTOVEN) 5MG TAB,UD TAKE 1.5 TABLETS BY MOUTH EVERY DAY ORAL ACTIVE YAHAIRA OLIVA ER 2011 [facility] WARFARIN SODIUM (warfarin sodium), 5 MG, TABLET, ORAL, [employer] 1000 ea. BOTTLE Active [id number] 4 2023 140 Pharmac y Data Transac tion Service Facilit y ZEPBOUND (tirzepatid e), 2.5 MG/0.5, PEN INJCTR, SUBCUT, [employer] .5 ml SYRINGE Active [id number] 4 2023 2 Pharmac y Data Transac tion Service Facilit y ZEPBOUND (tirzepatid e), 2.5 MG/0.5, PEN INJCTR, SUBCUT, [employer] .5 ml SYRINGE Active [id number] 4 2023 2 Pharmac y Data Transac tion Service Facilit y ZEPBOUND (tirzepatid e), 2.5 MG/0.5, PEN INJCTR, SUBCUT, [employer] .5 ml SYRINGE Active [id number] 2023 2 Pharmac y Data Transac tion Service Facilit y ZEPBOUND (tirzepatid e), 2.5 MG/0.5, PEN INJCTR, SUBCUT, [employer] .5 ml SYRINGE Active [id number] 3 2023 2 Pharmac y Data Transac tion Service Facilit y ZEPBOUND (tirzepatid e), 5 MG/0.5ML, PEN INJCTR, SUBCUT, [employer] .5 ml SYRINGE Cancele d [id number] : 2023 0 Pharmac y Data Transac tion Service Facilit y ZEPBOUND (tirzepatid e), 5 MG/0.5ML, PEN INJCTR, SUBCUT, [employer] .5 ml SYRINGE Cancele d [id number] : 2023 0 Pharmac y Data Transac tion Service Facilit y ZEPBOUND (tirzepatid e), 5 MG/0.5ML, PEN INJCTR, SUBCUT, [employer] .5 ml SYRINGE Active [id number] 4 2023 2 Pharmac y Data Transac tion Service Facilit y ZEPBOUND (tirzepatid e), 5 MG/0.5ML, PEN INJCTR, SUBCUT, [employer] .5 ml SYRINGE Cancele d [id number] : 2023 0 Pharmac y Data Transac tion Service Facilit y ZEPBOUND (tirzepatid e), 5 MG/0.5ML, PEN INJCTR, SUBCUT, [employer] .5 ml SYRINGE Cancele d [id number] : 2023 0 Pharmac y Data Transac tion Service Facilit y ZEPBOUND (tirzepatid e), 5 MG/0.5ML, PEN INJCTR, SUBCUT, [employer] .5 ml SYRINGE Cancele d [id number] 4 [id number] : 2023 0 Pharmac y Data Transac tion Service Facilit y ZEPBOUND (tirzepatid e), 5 MG/0.5ML, PEN INJCTR, SUBCUT, [employer] .5 ml SYRINGE Active [id number] 4 2023 2 Pharmac y Data Transac tion Service Facilit y ZEPBOUND (tirzepatid e), 5 MG/0.5ML, PEN INJCTR, SUBCUT, [employer] .5 ml SYRINGE Active [id number] 4 2023 2 Pharmac y Data Transac tion Service Facilit y ZEPBOUND (tirzepatid e), 5 MG/0.5ML, PEN INJCTR, SUBCUT, [employer] .5 ml SYRINGE Active [id number] 4 2023 2 Pharmac y Data Transac tion Service Facilit y ZEPBOUND (tirzepatid e), 5 MG/0.5ML, PEN INJCTR, SUBCUT, [employer] .5 ml SYRINGE Active [id number] 4 2023 2 Pharmac y Data Transac tion Service Facilit y ZEPBOUND (tirzepatid e), 5 MG/0.5ML, PEN INJCTR, SUBCUT, [employer] .5 ml SYRINGE Cancele d [id number] 4 [id number] : 2023 0 Pharmac y Data Transac tion Service Facilit y ZEPBOUND (tirzepatid e), 5 MG/0.5ML, PEN INJCTR, SUBCUT, [employer] .5 ml SYRINGE Active [id number] 4 2023 2 Pharmac y Data Transac tion Service Facilit y ZEPBOUND (tirzepatid e), 5 MG/0.5ML, PEN INJCTR, SUBCUT, [employer] .5 ml SYRINGE Active [id number] 4 2023 2 Pharmac y Data Transac tion Service Facilit y ZEPBOUND (tirzepatid e), 5 MG/0.5ML, PEN INJCTR, SUBCUT, [employer] .5 ml SYRINGE Active [id number] 4 2023 2 Pharmac y Data Transac tion Service Facilit y Immunizations Combined list of available immunizations from the Department of Defense and Veterans Affairs facilities. 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 Status Comments Source COVID-19 (PFIZER), MRNA, LNP-S, PF, 30 MCG/0.3 ML DOSE 2 2020 208 complet ed PFR; [id number]; 1 [facility] COVID-19 ([employer]), MRNA, LNP-S, PF, 30 MCG/0.3 ML DOSE 1 2020 208 complet ed PFR; [id number]; 1 [facility] INFLUENZA, SEASONAL, INJECTABLE, PRESERVATIVE FREE 2017 140 complet ed [facility] INFLUENZA, HIGH DOSE SEASONAL 2016 135 complet ed [facility] INFLUENZA, HIGH DOSE SEASONAL 2015 135 complet ed [facility] INFLUENZA, SEASONAL, INJECTABLE, PRESERVATIVE FREE 2014 140 complet ed [facility] INFLUENZA, SEASONAL, INJECTABLE 2013 141 complet ed [facility] PNEUMOCOCCAL CONJUGATE PCV 13 2013 133 complet ed [facility] PNEUMOCOCCAL, UNSPECIFIED FORMULATION 2013 109 complet ed [employer] Lot# [id number] Exp.Date- -05/18/14 [facility] INFLUENZA, UNSPECIFIED FORMULATION 2012 88 complet ed [facility] INFLUENZA, UNSPECIFIED FORMULATION 2011 88 complet ed [facility] TDAP 2011 115 complet ed [employer], [id number] a 03-05-13 [facility] INFLUENZA, UNSPECIFIED FORMULATION 2010 88 complet ed [facility] ZOSTER LIVE 2009 121 complet ed [facility] PNEUMOCOCCAL, UNSPECIFIED FORMULATION 2002 109 complet ed [facility] Encounters Combined list of: 1) Encounters from Department of Veterans Affairs facilities going back up to thelast 18 months. 2) Encounters from the Department of Defense facilities going back up to 280 months. Location Location Details Encounter Type Encounter Number Reason For Visit Attending Provider ADM Date DC Date Status Disposition Source [facility] Outpatient Encounter [id number] 03/29 [facility] CLAUDY [facility] [place] [facility] Outpatient Encounter [id number] 04/07 RENEE LOCO [facility] [place] [facility] Outpatient Encounter [id number] 05/25 [facility] Social History Combined list of available smoking, tobacco, and other social history from Department of Defense and Veterans Affairs facilities. 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 [facility]D
--- OUTSIDE RECORDS SUMMARY | 2024-03-02 08:36 | XMS_ITS | Encounter Summary ---
Author Organization [facility] Address [address] [place] [id number] Care Team Providers Care Dermatology Nurse Name Role Phone Unavailable Primary Care Provider Unavailabl e Reason for Referral * Outpatient (Routine) - Authorized Specialty Diagnoses / Procedures Referred By Contac t Referred To Contact Radiation Oncology Jennifer Huynh P.A.-C., M.SConnie [address] [place] [phone] Phone: tel: fax: Marvin Sinclair M.D. [address] [place] [phone] Phone: tel: fax: Referral ID Status Reason Start Date Expiration Date V isits Requested Visits Authorized [id number] Authorized 02/28/2024 08/29/2025 1 1 Scheduling Instructions [facility] TRICAL ENGINEER * Outpatient (Routine) - Closed Specialty Diagnoses / Procedures Referred By Contac t Referred To Contact Radiation Oncology Jennifer Huynh P.A.-C., M.S. [address] [place] [phone] Phone: tel: fax: Marvin Sinclair M.D. [address] [place] [phone] Phone: tel: fax: Referral ID Status Reason Start Date Expiration Date Visits Re quested Visits Authorized [id number] Closed 02/25/2023 02/24/2026 1 1 Scheduling Instructions PSA prior at [facility] TRICAL ENGINEER Reason for Visit * Outpatient (Routine) - Closed Specialty Diagnoses / Procedures Referred By Contoc t Referred To Contact Radiation Oncology Jennifer Huynh P.A.-C., M.S. [address] [place] [phone] Phone: tel: fax: Marvin Sinclair M.D. [address] [place] [phone] Phone: tel: fax: Referral ID Status Reason Start Date Expiration Date Visits Re quested Visits Authorized [id number] Closed 02/25/2023 02/24/2026 1 1 Encounter Details Date Type Department Care Team (Latest Contact Info) Description 02/28/2024 2:34 PM ELECTRICAL ENGINEER - 02/28/2024 4:13 PM ELECTRICAL ENGINEER Hospital Encounter Department of Radiation Oncology in [place], [place] [address] [place] [address] Marvin Sinclair M.D. [address] [place] [phone] Primary Malignant Neoplasm Of Prostate (HCC) (Primary Dx) Social History Tobacco Use Types Packs/Day Years [...] on file documented as of this encounter Last Filed Vital Signs Vital Sign Reading Time Taken Comments Blood Pressure - - Pulse - - Temperature 36.2 ??C (97.2 ??F) 02/28/2024 2:50 PM CS T Respiratory Rate - - Oxygen Saturation - - Inhaled Oxygen Concentration - - Weight 129 kg (285 lb 4.4 oz) 02/28/2024 2:50 PM ELECTRICAL ENGINEER Height - - Body Mass Index 38.22 01/03/2021 10:14 AM CDT documented in this encounter Medications at Time of Discharge calcium carbonate-vitami n D3 1,250 mg (500 mg calcium)-5 mcg (200 Unit) per tablet Take 1 tablet by mouth. 05/26/2012 dofetilide (TIKOSYN) 250 mcg capsule Take 250 mcg by mouth. 11/25/2020 fluticasone propion-salmeter oL (ADVAIR HFA) 115-21 mcg/actuation inhaler Inhale 2 puffs every 12 (twelve) hours. 11/21/2020 lisinopriL (PRINIVIL,ZESTRI L) 30 mg tablet Take 1 tablet by mouth daily. 11/21/2020 metoprolol succinate (TOPROL-XL) 25 mg 24 hr tablet Take 25 mg by mouth. 11/21/2020 miscellaneous medical supply misc CPAP machine for home use at pressure 9 cm/H2O, full face mask x1/3month with a full face cushion x1/mo 05/28/2020 multivitamin tablet Take by mouth. 08/30/2006 PARoxetine (PAXIL) 40 mg tablet Take 40 mg by mouth. 11/21/2020 pravastatin (PRAVACHOL) 20 mg tablet Take 1 tablet by mouth at bedtime. 11/21/2020 tolterodine (DETROL LA) 4 mg 24 hr capsule Take 4 mg by mouth. 09/25/2020 vit R-mxknidn-tvdl-r utin-hb196 162-79-90-40 mg tablet Take 1 tablet by mouth daily. 08/04/2016 warfarin (COUMADIN) 5 mg tablet TAKE BY MOUTH 2 TABLETS (10 MG) EVERY WEDNESDAY, WEDNESDAY, AND WEDNESDAY AND ONE AND ONE-HALF TABLETS (7.5 MG) ALL OTHER DAYS OR DIRECTED 05/17/2020 Xopenex HFA 45 mcg/actuation inhaler as needed. 02/18/2021 Zepbound 7.5 mg/0.5 mL injection pen INJECT 7.5 MG SUBCUTANEOUS ONCE WEEKLY. DOSE INCREASE documented as of this encounter Progress Notes * Jennifer Huynh P.A.-C., M.S. - 02/28/2024 3:00 PM CST SUBJECTIVE DIAGNOSIS 1. Primary Malignant Neoplasm Of Prostate (HCC) SUPERVISED BY: Marvin Sinclair M.D. [phone]) HISTORY OF PRESENT ILLNESS Mr. Timothy Russell is a 78-year-old male with prostate cancer. He completed definitive radiationtherapy on February 19, 2021. His oncologic history is as follows: 1. June 13, 2012: PSA 4.51 ng/mL. 2. July 27, 2012: Prostate biopsy was all benign. 3. February 01, 2013: PSA 3.51 ng/mL. 4. May 04, 2013: PSA 4.50 ng/mL. 5. November 04, 2016: PSA 5.11 ng/mL. 6. August 05, 2016: PSA 5.46 ng/mL. 7. August 23, 2017: PSA 5.76 ng/mL. 8. January 31, 2018: PSA 5.94 ng/mL. 9. February 15, 2018: MRI of the prostate demonstrated a lesion in the left posterior medial peripheral zone in the apex measuring 1.1 x 0.8 x 0.7 cm. PI- RADS 3. No extracapsular extension or neurovascular bundle involvement. No seminal vesicle invasion. No pelvic lymphadenopathy. No lesions in the v isualized bones. 10. February 25, 2018: Prostate biopsy was performed. The prostate was 50.9 g. Pathology demonstrated [place] 3+3=6 involving 3/3 cores (10-30%). No perineural invasion seen. 11. March 28, 2018: Decipher score 0.45 (average risk). The patient elected for expectant management. 12. June 02, 2018: PSA 4.79 ng/mL. 13. September 16, 2018: PSA 5.83 ng/mL. 14. January 10, 2019: PSA 5.49 ng/mL. 15. April 17, 2019: PSA 7.33 ng/mL. 16. April 26, 2019: MRI of the prostate demonstrated a prostate volume of 50 cc. No suspicious lesions identified in the prostate gland. The lesion in the left peripheral zone at the apex was not visualized. No periprostatic or pelvic sidewall lymph nodes. No other bony or soft tissue abnormalities identified. 17. August 09, 2019: PSA 6.75 ng/mL. 18. November 07, 2019: PSA 5.43 ng/mL. 19. February 23, 2020: PSA 7.63 ng/mL. 20. May 28, 2020: PSA 8.60 ng/mL. 21. August 30, 2020: PSA 8.60 ng/mL. 22. December 24, 2020: PSA 9.10 ng/mL. 23. December 25, 2020: Telephone visit with Dr. Lilly who discussed options including treatment, repeating a prostate MRI, or monitored during his PSA. The patient would like to proceed with treatment, plan for radiation therapy. Referral to Radiation Oncology. 24. January 03, 2021: Dr. Sinclair saw the patient in consultation and recommended external beam radiotherapy. Since it had been more than 18 months since his prior imaging, he ordered an MRI. 25. January 13, 2021: MRI of the prostate revealed 59 mL gland. A 2.0 x 1.4 x 0.8 cm heterogeneous T2 lesion was seen in the posterior lateral left peripheral zone in the mid gland concerning for malignancy (PI-RADS 4) there was no extracapsular extension, neurovascular invasion, or seminal vesicle invasion. There was no suspicious pelvic adenopathy or osseous lesion. 26. January 23, 2021 through February 19, 2021: Patient treated with intensity modulated radiotherapyto the prostate and proximal seminal vesicles to a dose of 6000 cGy in 20 fractions on COMPPARE trial. 27. May 19, 2021: PSA 2.56 ng/mL 28. August 19, 2021: PSA 2.07 ng/mL 29. February 16, 2022: PSA 0.73 ng/mL 30. August 24, 2022: PSA 0.7 ng/mL 31. February 22, 2023: PSA 0.59 ng/mL 32. September 01, 2023: PSA 0.40 ng/mL 33. February 16, 2024: PSA 0.29 ng/mL INTERVAL HISTORY: The patient was seen and examined today with Dr. Sinclair. The patient reports doing well overall. He rates his fatigue as 3/10 in severity. He denies any urinary concerns. He denies urinary frequency, urgency, incontinence, dysuria, or hematuria. He reportsnocturia x 0-1. He reports averaging a bowel movement every 3-4 days. He reports that he became more constipated after starting Zepbound, which he was educated is a side effect of the medication. He is drinking prune juice and using a stool softener as needed. He has lost 40 pounds. He denies persistent bone pain. He denies any changes to erectile dysfunction. He denies bone pain, dizziness, dyspnea, edema, gynecomastia, headaches, hot flashes, memory impairment, or nausea/vomiting. He reports improvement in breathing with his weight loss. REVIEW OF SYSTEMS Review of systems was negative except as documented above. PATIENT REPORTED SYMPTOM SCREEN: FATIGUE (Scale: 0 = no fatigue; 10 = worst fatigue you can imagine): 3 PAIN (Scale: 0 = no pain; 10 = worst pain you can imagine): 1 OVERALL QUALITY OF LIFE (Scale: 0 = as bad as can be; 10 = as good as can be): 8 OBJECTIVE Temp 36.2 ??C (Temporal) Wt 129 kg BMI 38.22 kg/m?? PHYSICAL EXAMINATION General: Alert and oriented, in no apparent distress. The patient is here today with his . ASSESSMENT / PLAN #1 Stage I (cT1c, cN0, cM0, PSA: 5.9, Grade Group: 1) adenocarcinoma of the prostate, status post biopsy on February 25, 2018 followed by active surveillance, now with PSA of 9.10 ng/mL on December 24, 2020 #2 Prostate radiotherapy on the COMPPARE trial, initiated on January 23, 2021; completed on 2020 The patient is doing well overall following radiation treatment, now 3 years from treatment completion. We reviewed his recent PSA result of 0.29 ng/mL, which has decreased and is a good result at this time following definitive radiation therapy. He denies any new or persistent side effects following radiation therapy at this time. We discussed constipation management today. We reviewed the recommendation for continued PSA monitoring every 6 months until 5 years from treatment completion. I will order for a PSA lab draw to be done at [facility] in [place] in 6 months. The patient will be contacted with the result by our care team when available. I will also orderfor a PSA lab draw to be done in 1 year followed by a return visit here, as per the COMPPARE trial p rotocol. The patient will contact us with questions or concerns. He verbally expressed his understanding of the plan. EDUCATION: Ready to learn, no apparent learning barriers were identified; learning preferences include listening. Explained diagnosis and treatment plan; patient expressed understanding of the content. I personally spent 25 minutes in care of the patient today. Time includes both non face to face andface to face patient care. Signed by: Jennifer Huynh P.A.-C., M.S. 02/28/2024 3:18 PM ELECTRICAL ENGINEER [facility] [address] [place] [address] Cosigned by Marvin Sinclair M.D. at 02/28/2024 3:53 PM ELECTRICAL ENGINEER TRICAL ENGINEER TRICAL ENGINEER Associated attestation - Marvin Sinclair M.D. - 02/28/2024 3:53 PM ELECTRICAL ENGINEER I saw and evaluated the patient and participated in the owen portions of the service. I reviewed thedocumentation of Jennifer Huynh P.A.-C. and agree with the findings and plan. Mr. Timothy Russell is a 78-year-old male with stage I (cT1c, cN0, cM0, PSA: 5.9, Grade Group: 1)adenocarcinoma of the prostate that was initially managed with active surveillance until PSA elías to 9.10 ng/ml on December 24, 2020. He was treated with definitive radiotherapy on the COMPPARE trialfinishing on February 19, 2021. The patient appears well on exam. He is here with his Alissa. He is doing well from a prostate cancer perspective now 3 years out from treatment completion. His PSA has continued to decline with his most recent PSA 0.29 ng/mL on February 16, 2024. We will repeata PSA in 6 months at [facility] and contact him with results. I will see him in follow-up in1 year with repeat PSA prior to that visit. The patient and his verbalized satisfaction with this plan. I congratulated the patient on his significant weight loss this year. We also discussed slowly working in exercise regimen on his exercise cycle working up to 30 minutes 5 days a week as a goal. He agreed to consider this. I spent a total of 10 minutes caring for this patient in both mief-wk-mhku and dak-dull-ck-face time. Signed by: Marvin Sinclair M.D. 02/28/24 3:53 PM ELECTRICAL ENGINEER [facility] Radiation Therapy [facility] documented in this encounter Miscellaneous Notes * Addendum Note - Kelley Watson C.N.A. - 02/28/2024 3:00 PM CSTEncounter addended by: Kelley Watson C.N.A. on: 02/28/2024 4:21 PM Actions taken: Letter saved TRICAL ENGINEER documented in this encounter Plan of Treatment Scheduled Orders Name Type Priority Associated Diagnoses Orde r Schedule PSA (Prostate-Specific Antigen), Diagnostic Lab Routine Primary Malignant Neoplasm Of Prostate (HCC) Expected: 08/25/2024 (Approximate), Expires: 02/27/2025 PSA (Prostate-Specific Antigen), Diagnostic Lab Routine Primary Malignant Neoplasm Of Prostate (HCC) Expected: 02/26/2025 (Approximate), Expires: 05/23/2025 Scheduled Referrals Name Type Priority Associated Diagnoses Order Schedule Radiation Oncology office visit (clinic) Outpatient Referral Routine Once for 1 Occurrences starting 02/28/2024 until 02/28/2024 Radiation Oncology office visit (clinic) Outpatient Referral Routine Expected: (Approximate), Expires: 04/04/2026 documented as of this encounter Visit Diagnoses Diagnosis Primary Malignant Neoplasm Of Prostate (HCC)- Primary documented in this encounter
--- OUTSIDE RECORDS SUMMARY | 2024-03-02 08:36 | XMS_ITS | Clinical Summary ---
Author Organization [facility] Address [address] [place] [address] Care Team Providers Care Word Processor Operator Name Role Phone Unavailable Primary Care Provider Unavailabl e Source Comments Patient records contain information from all sites at [facility]. For routine questions regarding patient records, call [phone] during business hours, M-F 8:00 AM - 5:00 PM Central Time. Record requests for emergency care only can be directed to [phone] at any time.[facility] Allergies No known active allergies Medications calcium [...] mouth daily. 1 Active miscellaneous medical supply [facility] CPAP machine for home use at pressure [...] OTHER DAYS OR DIRECTED 1 Active vit I-lwqfjvt-rnpg- rutin-hb196 610-58-00-40 mg tablet Take 1 tablet by mouth daily. 7 Active Xopenex HFA 45 mcg/actuation inhaler as needed. 1 Active Zepbound 7.5 mg/0.5 mL injection pen INJECT 7.5 MG SUBCUTANEOUS ONCE WEEKLY. DOSE INCREASE Active Active Problems Problem Noted Date Diagnosed Date Primary Malignant Neoplasm Of Prostate 1 Cancer Staging:Clinical stage from 02/25/2018:Stage I(cT1c, cN0, cM0, PSA: 5.9, Grade Group: 1) - Unsigned Encounters Date Type Department Care Team Description 02/28/2024 2:34 PM MARGIN ANALYST - 02/28/2024 4:13 PM MARGIN ANALYST Hospital Encounter Department of Radiation Oncology in [address] [phone] Marvin Sinclair M.D. Primary Malignant Neoplasm Of Prostate (HCC) (Primary Dx) 12/07/2023 Clinical Communication Department of Radiation Oncology in [address] [phone] Marvin Sinclair M.D. from Last 3 Months Social History Tobacco Use Types Packs/Day Years [...] Comments Blood Pressure 180/71 02/23/2022 9:50 AM MARGIN ANALYST Pulse 68 02/23/2022 9:50 AM MARGIN ANALYST Temperature 36.2 ??C (97.2 ??F) 02/28/2024 2:50 PM CS T Respiratory Rate - - Oxygen Saturation - - Inhaled Oxygen Concentration - - Weight 129 kg (285 lb 4.4 oz) 02/28/2024 2:50 PM MARGIN ANALYST Height 184 cm (6' 0.44) 01/03/2021 10:14 AM CDT Body Mass Index 38.22 01/03/2021 10:14 AM CDT Plan of Treatment Health Maintenance Due Date Last Done Comments Hepatitis C Screening 1945 RSV vaccine - (32-36 weeks) or 60+ years (1 - 1-dose 75+ series) 2021 Sodium Level 11/28/2022 11/28/2021, 07/18, 11/21/2020, Additional history exists Depression Screening (Annual PHQ-2) 04/19/2023 Fall Risk Screen (Annual) 04/19/2023 COVID-19 Vaccine ( season) 2023 02/15/2023, 12/30/2021, 08/04/2021, Additional history exists Creatinine Level (Kidney Function Test) 09/20/2024 09/21/2023, 05/31/2023, 03/08/2023, Additional history exists Potassium Level 09/20/2024 09/21/2023, 05/20, 03/08/2023, Additional history exists DTaP,Tdap,and Td Vaccines (3 - Td or Tdap) 12/24/2031 12/23/2021, 05/01/2011, 04/06/2006 Pneumococcal vaccine (65+ years) Completed 08/02/2014, 01/17/2014, 04/20/2013, Additional history exists Zoster Vaccines Completed 06/06/2018, 02/17, 04/19/2009, Additional history exists Colonoscopy Discontinued 03/01/2023 Colorectal Cancer Screening Discontinued Influenza Vaccine Completed 12/28/2023, , 03/02/2022, Additional history exists CT Colonography Discontinued Cologuard Discontinued FIT Discontinued HPV Vaccines Aged Out No longer eligi ble based on patient's age to complete this topic IPV Vaccines Aged Out No longer eligi ble based on patient's age to complete this topic Insurance MEDICARE [facility] Debitos
--- OUTSIDE RECORDS SUMMARY | 2024-03-02 08:36 | XMS_ITS ---
Author Organization [facility] Address [address] [place] [address] Care Team Providers Care Company Marker Name Role Phone Unavailable Primary Care Provider Unavailabl e Active Problems Problem Noted Date Diagnosed Date Primary Malignant Neoplasm Of Prostate Cancer Staging:Clinical stage from 02/25/2018:Stage I(cT1c, cN0, cM0, PSA: 5.9, Grade Group: 1) - Unsigned Current Oncology Plans No current plan information found. Past Plans No past plan information found. Radiation Treatments * Plan Last Treated On Elapsed Days Fractions Treated Prescribed Fraction Dose Prescribed Total Dose F1_Prostate 02/19/2021 27 20 of 20 300 cGy 6,000 cG y Reference Point Last Treated On Elapsed Days Session Dose Total Dose [id number] 02/19/2021 27 300 cGy 6,000 cGy
[2024-03-02 08:37] LABS: Basophils Absolute Auto 0.03 K/uL (0.00-0.30); Basophils Percent Auto 0.3 % (0.0-3.0); Eosinophils Absolute Auto 0.15 K/uL (0.00-0.50); Eosinophils Percent Auto 1.6 % (0.0-7.0); Hematocrit 44.8 % (37.0-53.0); Hemoglobin* 15.1 gm/dL (13.5-17.5); Immature Granulocytes Abs Auto 0.03 K/uL (0.00-0.30); Immature Granulocytes Pct Auto 0.3 %; Lymphocytes Percent Auto 13.2 % (20-44); Mean Corpuscular HGB Conc 34 gm/dL (32-36); Mean Corpuscular Hemoglobin 31 pg (26-34); Mean Corpuscular Volume 93 fL (80-100); Monocytes Percent Auto 10.3 % (0.0-11.0); Neutrophils Percent Auto 74.3 % (42.0-72.0); Platelet Count* 190 K/uL (140-440); RDW Coefficient of Variation % 13.8 % (11.5-15.5); Red Blood Count 4.84 m/uL (4.30-5.90); White Blood Count* 9.39 K/uL (4.50-11.00)
[2024-03-02 08:45] LABS: Slide Review Reflex No
[2024-03-02 08:58] LABS: Chloride* 102 mmol/L (96-114); Potassium* 4.3 mmol/L (3.6-5.1); Sodium* 136 mmol/L (135-149)
[2024-03-02 09:00] LABS: Creatinine* 0.6 mg/dL (0.5-1.5); Estimated Glomerular Filt Rate 99 ml/min
[2024-03-02 09:01] LABS: Anion Gap 8 mEq/L (7-15); Blood Urea Nitrogen* 13 mg/dL (7-30); Calcium* 9.4 mg/dL (8.4-10.6); Carbon Dioxide* 26 mmol/L (20-32); Glucose* 112 mg/dL (60-115)
[2024-03-02 09:04] LABS: C Reactive Protein* 1.6 mg/dL (0.5-1.0)
[2024-03-02 09:11] LABS: NT Pro B Type NatriureticPept* 99 pg/mL
[2024-03-02] MEDS: 0.9 % SODIUM CHLORIDE 500 ML 500 ML 1000 ML IV (09:40)
[2024-03-02 11:38] LABS: INR 2.68 (0.91-1.10); Prothrombin Time 30.6 Seconds
[2024-03-02 11:47] LABS: D Dimer Quantitative* 0.29 ug/ml (0.00-0.50)
== END 2024-03-02 10:58 | disposition home or self-care (01) ==
PROVIDERS: Emergency Provider Family Medicine; PCP Surgery
DX: R07.9 Chest pain, unspecified (principal); I45.10 Unspecified right bundle-branch block; K59.00 Constipation, unspecified
CPT/HCPCS: 36415; 71045; 80048; 83880; 84484; 85025; 85379; 85610; 86140; 93005; 99284; J7030

== ENCOUNTER 2024-10-05 09:30 | Outpatient (RCR) | payer MEDICARE, OTHER, SELFPAY | END 2024-12-15 15:26 | disposition home or self-care (01) | PROVIDERS: PCP Surgery; Visit Provider Surgery | DX: M25.551 Pain in right hip (principal); M54.50 Low back pain, unspecified; G89.29 Other chronic pain; Z51.89 Encounter for other specified aftercare | CPT/HCPCS: 97110; 97140; 97161 ==